=== PATIENT | female | born 1965 | race Two or more races ===

== ENCOUNTER 2024-10-21 12:39 | Emergency (ER) | payer OTHER ==
[~2024-10-21] VITALS: Ht 170.2 cm; Wt 81.6 kg
[2024-10-21 14:26] VITALS: BP 156/94; O2SAT 100
[2024-10-21] MEDS ORDERED: levoFLOXacin IN DEXTROSE 5 % 500MG/100ML PIGGYBAG IV STA (15:29)
[2024-10-21] MEDS ORDERED: KETOROLAC TROMETHAMINE 60 MG VIAL IM STA (15:31)
[2024-10-21] MEDS ORDERED: levoFLOXacin IN DEXTROSE 5 % 500MG/100ML PIGGYBAG IV ONE (15:49)
[2024-10-21] MEDS ORDERED: KETOROLAC TROMETHAMINE 60 MG VIAL IM ONE (15:49)
[2024-10-21] MEDS ORDERED: 0.9 % SODIUM CHLORIDE 1,000 ML IV STA (15:56)
[2024-10-21 16:22] LABS: HEMATOCRIT 36.5 % (36.0-45.00); MEAN CELL VOLUME 81.1 fL (80.00-100.00); MEAN CORPUSCULAR HEMOGLOBIN 26.6 pg (27.00-32.0); MEAN CORPUSCULAR HGB CONC 32.8 g/dl (32.0-36.0); PLATELET COUNT 158 K/uL (150-450); RED CELL DISTRIBUTION WIDTH 16.2 % (11.5-14.5)
[2024-10-21 16:42] LABS: PH,URINE 5.5 (5.0-8.0); URINE APPEARANCE Cloudy; URINE BILIRRUBIN Small (NEGATIVE); URINE BLOOD Moderate; URINE COLOR Dark Yellow; URINE GLUCOSE Negative (NEGATIVE); URINE KETONE 15 (NEGATIVE); URINE LEUKOCYTE Moderate; URINE NITRATE Negative
[2024-10-21 16:43] LABS: URINE BACTERIA 3020.6 uL (0.0-1933); URINE CAST 1.76 uL (0.0-1.40); URINE EPITHELIAL CELLS 93.4 uL (0.0-38.8); URINE RBC 32.8 uL (0.0-20.8); URINE WBC 674.9 uL (0.0-23.2)
[2024-10-21 16:49] LABS: ALBUMIN 3.7 gm/dL (3.4-5.0); BILIRUBIN TOTAL 0.68 mg/dL (0.3-1.2); BILIRUBIN,CONJUGATED 0.24 mg/dL (0.0-0.2); BILIRUBIN,UNCONJUGATED 0.44 mg/dL (0.0-0.6); CALCIUM 10.8 mg/dL (8.5-10.1); CREATININE SERUM 1.15 mg/dL (0.55-1.02); GFR 47.97; POTASSIUM 4.11 mEq/L (3.5-5.1); TOTAL PROTEIN 7.9 gm/dL (6.4-8.2)
[2024-10-21 16:59] LABS: URINE PROTEIN 100 (NEGATIVE)
[2024-10-21] MEDS ORDERED: PEPCID AC20 MG PO (17:05)
[2024-10-21] MEDS ORDERED: ZOFRAN8 MG PO (17:05)
[2024-10-21] MEDS ORDERED: BACTRIM DS TAB1 EACH PO (17:05)
== END 2024-10-21 17:57 | disposition home or self-care (01) ==
LOC: ER 12:41
PROVIDERS: General Practice
DX: N39.0 Urinary tract infection, site not specified (principal)

== ENCOUNTER 2024-10-24 21:40 | Inpatient (IN) | payer OTHER ==
[~2024-10-24] VITALS: Ht 162.6 cm; Wt 86.2 kg
[~2024-10-24 21:40] MED LIST: BACTRIM DS TAB1 EACH PO; PEPCID AC20 MG PO; ZOFRAN8 MG PO
[2024-10-24] MEDS ORDERED: ATORVASTATIN CA10 MG PO (21:50)
[2024-10-24] MEDS ORDERED: LOSARTAN-HCTZ1 EAC2 PO (21:50)
--- NOTE | 2024-10-24 21:50 | NUR ---
SE RECIBE PTE ALERTA Y ORIENTADA X3 CUAL VERBALIZA LLEVA VARIOS MESES CON VOMITOS CONSTANTES Y EN OCASIONES PRESENTA STEPHON. SE ASAD S/V Y SE UBICA.
[2024-10-25] MEDS ORDERED: 0.9 % SODIUM CHLORIDE 1,000 ML IV STA (03:47)
[2024-10-25] MEDS ORDERED: FAMOtidine 10 MG/ML (4ML VIAL) IV PUSH STA (03:48)
[2024-10-25] MEDS ORDERED: METOCLOPRAMIDE HCL 5 MG/ML VIAL IM STA (03:56)
[2024-10-25] MEDS ORDERED: METOCLOPRAMIDE HCL 5 MG/ML VIAL ONE (03:59)
[2024-10-25] MEDS ORDERED: FAMOTIDINE/PF 20 MG/2 ML VIAL ONE (03:59)
[2024-10-25] MEDS ORDERED: HYOSCYAMINE SULFATE 0.125 MG TAB.SUBL ONE (03:59)
[2024-10-25] MEDS ORDERED: HYOSCYAMINE SULFATE 0.125 MG TAB.SUBL SL ONE (04:00)
[2024-10-25 05:32] LABS: HEMATOCRIT 29.6 % (36.0-45.00); MEAN CELL VOLUME 82.5 fL (80.00-100.00); MEAN CORPUSCULAR HGB CONC 32.2 g/dl (32.0-36.0); RED BLOOD COUNT 3.59 M/uL (4.00-6.00); RED CELL DISTRIBUTION WIDTH 16.2 % (11.5-14.5)
[2024-10-25 05:34] LABS: HEMOGLOBIN 9.5 g/dL (12.0-15.00); MEAN CORPUSCULAR HEMOGLOBIN 26.4 pg (27.00-32.0); PLATELET COUNT 107 K/uL (150-450)
[2024-10-25 05:48] LABS: PH,URINE 5.5 (5.0-8.0); URINE APPEARANCE Cloudy; URINE BILIRRUBIN Negative (NEGATIVE); URINE BLOOD Negative; URINE COLOR Dark Yellow; URINE GLUCOSE Negative (NEGATIVE); URINE KETONE 15 (NEGATIVE); URINE LEUKOCYTE Small; URINE NITRATE Negative; URINE PROTEIN Trace (NEGATIVE)
[2024-10-25 05:52] LABS: ALBUMIN 3.1 gm/dL (3.4-5.0); BILIRUBIN TOTAL 0.72 mg/dL (0.3-1.2); CALCIUM 10.1 mg/dL (8.5-10.1); CREATININE SERUM 0.9 mg/dL (0.55-1.02); GFR 63.65; GLOBULINA 3.1 G/DL (2.4-3.5); POTASSIUM 3.76 mEq/L (3.5-5.1); TOTAL PROTEIN 6.2 gm/dL (6.4-8.2); URINE BACTERIA 2227.6 uL (0.0-1933); URINE EPITHELIAL CELLS 70.7 uL (0.0-38.8); URINE WBC 71.3 uL (0.0-23.2)
[2024-10-25 05:53] LABS: INR 1.42; PARTIAL THROMBOPLASTIN TIME 22.1 SECONDS (22.0-34.0); URINE CAST 0.73 uL (0.0-1.40)
[2024-10-25 05:59] LABS: PROTHROMBIN TIME 15.1 SECONDS (9.0-11.5)
[2024-10-25] MEDS ORDERED: PANTOPRAZOLE SODIUM 80 MG in 0.9 % SODIUM CHLORIDE 100 ML IV SCH (07:30)
--- NOTE | 2024-10-25 07:43 | NUR ---
SE RECIBE PACIENTE ALERTA Y ORIENTADA X3. LA MISMA EN DESCANSO EN CAMA. CANALIZADA EN BRAZO YIMI # 18 Y MANO IZQUIERDA # 22 PATENTE Y SHAHID DE DOLOR BAJANDO CON UN 0.9NSS @ 120 ML/HR Y DRIP DE PROTONIX 80MG/100 ML @ 10 ML/HR. LA MISMA CONSULTA CON DX. DE UPPER GI BLEED. POR ORDEN DEL DR. HOFFMANN SE CONECTA A MONITOR CARDIACO Y OXIMETRIA DE PULSO. SE COLOCA CANULA NASAL A 2 L/MIN. Y SE MIDEN S/V Y SE DOCUMENTAN EN SISTEMA. SE ORIENTA SOBRE EL TX MEDICO QUE ESTA RECIBIENDO Y ESTA REFIERE ENTENDER
[2024-10-25] MEDS ORDERED: ONDANSETRON HCL 2 MG/ML VIAL IV ONE (10:45)
[2024-10-25] MEDS ORDERED: ONDANSETRON HCL 2 MG/ML VIAL ONE ×3 (10:46→18:58)
[2024-10-25] MEDS ORDERED: MORPHINE SULFATE 2 MG/ML CARTRIDGE IV PRN (18:15)
[2024-10-25] MEDS ORDERED: 0.9 % SODIUM CHLORIDE 1,000 ML IV SCH (18:15)
[2024-10-25] MEDS ORDERED: ACETAMINOPHEN 325 MG TABLET PO PRN (18:30)
[2024-10-25] MEDS ORDERED: ONDANSETRON HCL 4 MG in 0.9 % SODIUM CHLORIDE 50 ML IV PRN (18:30)
[2024-10-25 21:57] VITALS: BP 155/80; O2SAT 97
[2024-10-26 01:59] VITALS: BP 135/76; O2SAT 97
[2024-10-26 07:38] LABS: HEMATOCRIT 25.5 % (36.0-45.00); MEAN CORPUSCULAR HGB CONC 32.8 g/dl (32.0-36.0); RED BLOOD COUNT 3.11 M/uL (4.00-6.00); RED CELL DISTRIBUTION WIDTH 16.1 % (11.5-14.5)
[2024-10-26 07:50] LABS: HEMOGLOBIN 8.4 g/dL (12.0-15.00); PLATELET COUNT 85 K/uL (150-450)
[2024-10-26 08:21] LABS: ALBUMIN 2.6 gm/dL (3.4-5.0); BILIRUBIN TOTAL 0.72 mg/dL (0.3-1.2); BILIRUBIN,CONJUGATED 0.25 mg/dL (0.0-0.2); BILIRUBIN,UNCONJUGATED 0.47 mg/dL (0.0-0.6); CALCIUM 8.8 mg/dL (8.5-10.1); CREATININE SERUM 0.88 mg/dL (0.55-1.02); GFR 65.32; POTASSIUM 3.64 mEq/L (3.5-5.1); TOTAL PROTEIN 5.4 gm/dL (6.4-8.2)
[2024-10-26] MEDS ORDERED: LOSARTAN POTASSIUM 100 MG TABLET PO SCH (09:00)
[2024-10-26 10:19] VITALS: BP 128/72; O2SAT 98
[2024-10-26] MEDS ORDERED: CEFTRIAXONE SODIUM 2,000 MG in 0.9 % SODIUM CHLORIDE 100 ML IV SCH (11:38)
[2024-10-26] MEDS ORDERED: ENALAPRILAT DIHYDRATE 1.25 MG/ML VIAL IV SCH (14:08)
[2024-10-26] MEDS ORDERED: MORPHINE SULFATE 2 MG/ML SYRINGE IV PRN (14:15)
[2024-10-26 18:58] VITALS: BP 153/83; O2SAT 96
[2024-10-26] MEDS ORDERED: ONDANSETRON HCL 2 MG/ML VIAL IV PRN (23:15)
[2024-10-27 01:45] VITALS: BP 159/90; O2SAT 94
[2024-10-27] MEDS ORDERED: METOCLOPRAMIDE HCL 5 MG/ML VIAL IV PRN (02:45)
[2024-10-27 07:02] LABS: HEMATOCRIT 32.1 % (36.0-45.00); HEMOGLOBIN 10.5 g/dL (12.0-15.00); MEAN CELL VOLUME 81.3 fL (80.00-100.00); MEAN CORPUSCULAR HEMOGLOBIN 26.5 pg (27.00-32.0); MEAN CORPUSCULAR HGB CONC 32.6 g/dl (32.0-36.0); RED BLOOD COUNT 3.95 M/uL (4.00-6.00); RED CELL DISTRIBUTION WIDTH 15.5 % (11.5-14.5)
[2024-10-27 07:08] LABS: PLATELET COUNT 82 K/uL (150-450)
[2024-10-27 08:40] VITALS: BP 165/90
[2024-10-27] MEDS ORDERED: KETOROLAC TROMETHAMINE 30 MG VIAL ONE (09:08)
[2024-10-27] MEDS ORDERED: MIDAZOLAM HCL 2 MG/2 ML VIAL IV PUSH ONE (20:15)
[2024-10-27] MEDS ORDERED: FentaNYL CITRATE/PF 50MCG/ML 2ML VIAL IJ ONE (20:15)
[2024-10-27 22:00] VITALS: BP 188/101
[2024-10-28 01:48] VITALS: BP 158/85; O2SAT 97
[2024-10-28 09:07] VITALS: BP 180/81
[2024-10-28 16:48] VITALS: BP 172/83
[2024-10-28 22:25] LABS: FERRITIN 83.7 NG/ML (8-252); TSH 0.825 uIU/mL (0.358-3.74)
[2024-10-29 01:55] VITALS: BP 178/89; O2SAT 95
[2024-10-29] MEDS ORDERED: PANTOPRAZOLE SODIUM 80 MG in 0.9 % SODIUM CHLORIDE 100 ML IV SCH (06:00)
[2024-10-29] MEDS ORDERED: MEPERIDINE HCL 25 MG/ML AMPUL IV PRN (08:15)
[2024-10-29] MEDS ORDERED: CEFTRIAXONE SODIUM 2,000 MG VIAL ONE (08:28)
[2024-10-29 10:01] LABS: FOLIC ACID 9.96 ng/ml (4.78-20)
[2024-10-29 10:09] VITALS: BP 178/107; O2SAT 96
[2024-10-29 17:52] VITALS: BP 184/101
[2024-10-29 22:06] LABS: HEMATOCRIT 33.8 % (36.0-45.00); HEMOGLOBIN 10.7 g/dL (12.0-15.00); MEAN CORPUSCULAR HEMOGLOBIN 25.9 pg (27.00-32.0); MEAN CORPUSCULAR HGB CONC 31.6 g/dl (32.0-36.0); RED BLOOD COUNT 4.12 M/uL (4.00-6.00); RED CELL DISTRIBUTION WIDTH 16.4 % (11.5-14.5)
[2024-10-29 22:07] LABS: PLATELET COUNT 96 K/uL (150-450)
[2024-10-29 22:19] LABS: ALBUMIN 2.6 gm/dL (3.4-5.0); BILIRUBIN TOTAL 0.77 mg/dL (0.3-1.2); CALCIUM 9.6 mg/dL (8.5-10.1); CREATININE SERUM 0.78 mg/dL (0.55-1.02); GFR 75.08; GLOBULINA 3.2 G/DL (2.4-3.5); POTASSIUM 3.24 mEq/L (3.5-5.1); TOTAL PROTEIN 5.8 gm/dL (6.4-8.2)
[2024-10-30 04:03] VITALS: BP 182/81
[2024-10-30] MEDS ORDERED: SODIUM CL 0.9% 100 ML IV.SOLN IV ONE (04:49)
[2024-10-30] MEDS ORDERED: CEFTRIAXONE SODIUM 2,000 MG VIAL ONE (08:06)
[2024-10-30] MEDS ORDERED: MIDAZOLAM HCL 2 MG/2 ML VIAL IV ONE (09:30)
[2024-10-30] MEDS ORDERED: fentaNYL CITRATE 50 MCG/ML AMPUL IV PUSH ONE (09:30)
[2024-10-30] MEDS ORDERED: DIPHENHYDRAMINE HCL 50 MG/ML VIAL 1ML IV NR (09:30)
[2024-10-30] MEDS ORDERED: SUCRALFATE 1 G TABLET PO SCH (10:17)
[2024-10-30 14:42] LABS: HEMATOCRIT 34.3 % (36.0-45.00); HEMOGLOBIN 10.9 g/dL (12.0-15.00); MEAN CELL VOLUME 81.8 fL (80.00-100.00); MEAN CORPUSCULAR HEMOGLOBIN 26.1 pg (27.00-32.0); RED BLOOD COUNT 4.19 M/uL (4.00-6.00); RED CELL DISTRIBUTION WIDTH 16.6 % (11.5-14.5)
[2024-10-30 14:46] LABS: PLATELET COUNT 99 K/uL (150-450)
[2024-10-30 18:27] VITALS: BP 157/99
[2024-10-30] MEDS ORDERED: MORPHINE SULFATE 2 MG/ML CARTRIDGE IV PRN (19:15)
[2024-10-31 02:54] VITALS: BP 144/95; O2SAT 96
[2024-10-31 09:42] VITALS: BP 160/100; O2SAT 94
[2024-10-31 12:07] LABS: HEMATOCRIT 35.7 % (36.0-45.00); HEMOGLOBIN 11.4 g/dL (12.0-15.00); MEAN CELL VOLUME 82.6 fL (80.00-100.00); MEAN CORPUSCULAR HEMOGLOBIN 26.2 pg (27.00-32.0); MEAN CORPUSCULAR HGB CONC 31.8 g/dl (32.0-36.0); RED BLOOD COUNT 4.33 M/uL (4.00-6.00); RED CELL DISTRIBUTION WIDTH 16.4 % (11.5-14.5)
[2024-10-31 12:09] LABS: PLATELET COUNT 97 K/uL (150-450)
[2024-10-31 17:41] VITALS: BP 140/90; O2SAT 94
[2024-11-01 02:09] VITALS: BP 157/81; O2SAT 92
[2024-11-01 09:47] VITALS: BP 136/80; O2SAT 97
[2024-11-01 11:28] LABS: HEMATOCRIT 33.3 % (36.0-45.00); HEMOGLOBIN 10.7 g/dL (12.0-15.00); MEAN CELL VOLUME 82.3 fL (80.00-100.00); MEAN CORPUSCULAR HEMOGLOBIN 26.3 pg (27.00-32.0); RED BLOOD COUNT 4.05 M/uL (4.00-6.00); RED CELL DISTRIBUTION WIDTH 16.9 % (11.5-14.5)
[2024-11-01 11:39] LABS: CALCIUM 9.8 mg/dL (8.5-10.1); CREATININE SERUM 0.86 mg/dL (0.55-1.02); GFR 67.08; POTASSIUM 3.3 mEq/L (3.5-5.1)
[2024-11-01 11:44] LABS: PLATELET COUNT 99 K/uL (150-450)
[2024-11-01] MEDS ORDERED: POTASSIUM BICARBONATE/CIT AC 25 MEQ TABLET.EFF PO SCH (17:00)
[2024-11-01 18:16] VITALS: BP 183/96
[2024-11-02 02:17] VITALS: BP 182/90
[2024-11-02] MEDS ORDERED: AMLODIPINE BESYLATE 10 MG TABLET PO SCH (09:00)
[2024-11-02 09:01] LABS: CALCIUM 9.6 mg/dL (8.5-10.1); CREATININE SERUM 0.8 mg/dL (0.55-1.02); GFR 72.92; POTASSIUM 3.57 mEq/L (3.5-5.1)
[2024-11-02] MEDS ORDERED: ENOXAPARIN SODIUM 40 MG/0.4 ML SYRINGE SUBCUTANEO SCH (09:09)
[2024-11-02 09:54] VITALS: BP 131/86; O2SAT 98
[2024-11-02 18:44] VITALS: BP 160/100
[2024-11-03 02:11] VITALS: BP 158/110; O2SAT 96
[2024-11-03] MEDS ORDERED: PANTOPRAZOLE SODIUM 80 MG in 0.9 % SODIUM CHLORIDE 100 ML IV SCH (09:00)
[2024-11-03 09:30] VITALS: BP 152/90; O2SAT 98
[2024-11-03 12:13] LABS: HEMATOCRIT 33.4 % (36.0-45.00); MEAN CELL VOLUME 82.2 fL (80.00-100.00); MEAN CORPUSCULAR HGB CONC 31.6 g/dl (32.0-36.0); RED BLOOD COUNT 4.07 M/uL (4.00-6.00); RED CELL DISTRIBUTION WIDTH 16.4 % (11.5-14.5)
[2024-11-03 12:14] LABS: PLATELET COUNT 115 K/uL (150-450)
[2024-11-03 12:15] LABS: HEMOGLOBIN 10.6 g/dL (12.0-15.00)
[2024-11-03 18:20] VITALS: BP 170/91; O2SAT 96
[2024-11-04 00:53] VITALS: BP 147/88; O2SAT 98
[2024-11-04 08:39] VITALS: BP 148/99
[2024-11-04] MEDS ORDERED: ENALAPRILAT DIHYDRATE 1.25 MG/ML VIAL IV PRN (16:45)
[2024-11-04 18:09] VITALS: BP 186/90
[2024-11-05 03:06] VITALS: BP 166/89
[2024-11-05 08:38] VITALS: BP 161/92
[2024-11-05 11:37] LABS: HEMATOCRIT 28.9 % (36.0-45.00); HEMOGLOBIN 9.5 g/dL (12.0-15.00); MEAN CELL VOLUME 80.3 fL (80.00-100.00); MEAN CORPUSCULAR HEMOGLOBIN 26.2 pg (27.00-32.0); MEAN CORPUSCULAR HGB CONC 32.7 g/dl (32.0-36.0); RED CELL DISTRIBUTION WIDTH 16.6 % (11.5-14.5)
[2024-11-05 11:38] LABS: PLATELET COUNT 124 K/uL (150-450)
[2024-11-05] MEDS ORDERED: BUPIVACAINE HCL/MPF 0.5% 30ML VIAL ONE (17:12)
[2024-11-05] MEDS ORDERED: LIDOCAINE HCL 1%/EPINEPHRINE 20ML VIAL IJ ONE (17:12)
[2024-11-05] MEDS ORDERED: CEFAZOLIN SODIUM 1,000 MG VIAL ONE (17:33)
[2024-11-05] MEDS ORDERED: HEPARIN SODIUM,PORCINE 500 UNITS/5 ML VIAL IV ONE (18:45)
[2024-11-05] MEDS ORDERED: MORPHINE SULFATE 4 MG/ML CARTRIDGE IV PRN (19:00)
[2024-11-05] MEDS ORDERED: MORPHINE SULFATE 4 MG/ML VIAL IV ONE (19:25)
[2024-11-06 02:36] VITALS: BP 137/79
[2024-11-06 08:40] VITALS: BP 158/94
[2024-11-08 02:30] VITALS: BP 138/76; O2SAT 98
== END 2024-11-06 15:50 | disposition home or self-care (01) | DRG 424 ==
LOC: ER 21:40 → MEDJ 10-25 19:11
PROVIDERS: General Practice; Internal Medicine Hematology & Oncology; Student in an Organized Health Care Education/Training Program; ADMIT Internal Medicine; ATTEND Internal Medicine
PROC: BW21ZZZ Computerized Tomography (CT Scan) of Abdomen and Pelvis (ICD-10-PCS; 2024-10-25)
PROC: B24BZZZ Ultrasonography of Heart with Aorta (ICD-10-PCS; 2024-10-25)
PROC: B54MZZZ Ultrasonography of Right Upper Extremity Veins (ICD-10-PCS; 2024-10-25)
PROC: 02HV33Z Insertion of Infusion Device into Superior Vena Cava, Percutaneous Approach (ICD-10-PCS; 2024-10-26)
PROC: 30233N1 Transfusion of Nonautologous Red Blood Cells into Peripheral Vein, Percutaneous Approach (ICD-10-PCS; 2024-10-26)
PROC: 0FB03ZX Excision of Liver, Percutaneous Approach, Diagnostic (ICD-10-PCS; 2024-10-27)
PROC: BW24YZZ Computerized Tomography (CT Scan) of Chest and Abdomen using Other Contrast (ICD-10-PCS; 2024-10-28)
PROC: BW21YZZ Computerized Tomography (CT Scan) of Abdomen and Pelvis using Other Contrast (ICD-10-PCS; 2024-10-28)
PROC: 0DB68ZX Excision of Stomach, Via Natural or Artificial Opening Endoscopic, Diagnostic (ICD-10-PCS; 2024-10-30)
PROC: 05HM33Z Insertion of Infusion Device into Right Internal Jugular Vein, Percutaneous Approach (ICD-10-PCS; 2024-11-05)
PROC: B513YZA Fluoroscopy of Right Jugular Veins using Other Contrast, Guidance (ICD-10-PCS; 2024-11-05)
PROC: 0JH60WZ Insertion of Totally Implantable Vascular Access Device into Chest Subcutaneous Tissue and Fascia, Open Approach (ICD-10-PCS; principal; 2024-11-05 17:00)
DX: C25.9 Malignant neoplasm of pancreas, unspecified (principal); C78.02 Secondary malignant neoplasm of left lung; K92.2 Gastrointestinal hemorrhage, unspecified; C78.7 Secondary malignant neoplasm of liver and intrahepatic bile duct; K76.6 Portal hypertension; N39.0 Urinary tract infection, site not specified; D62 Acute posthemorrhagic anemia; C78.89 Secondary malignant neoplasm of other digestive organs; E87.1 Hypo-osmolality and hyponatremia; K44.9 Diaphragmatic hernia without obstruction or gangrene; D63.0 Anemia in neoplastic disease; E87.6 Hypokalemia; I10 Essential (primary) hypertension; E78.5 Hyperlipidemia, unspecified; D69.6 Thrombocytopenia, unspecified; K31.89 Other diseases of stomach and duodenum

== ENCOUNTER 2025-01-06 22:03 | Inpatient (IN) | payer OTHER ==
[~2025-01-06] VITALS: Ht 162.6 cm; Wt 81.6 kg
[~2025-01-06 22:03] MED LIST changes: +ATORVASTATIN CA10 MG PO; +LOSARTAN-HCTZ1 EAC2 PO
[2025-01-07 00:27] LABS: HEMATOCRIT 26.2 % (36.0-45.00); MEAN CELL VOLUME 82.5 fL (80.00-100.00); MEAN CORPUSCULAR HGB CONC 32.1 g/dl (32.0-36.0); RED BLOOD COUNT 3.18 M/uL (4.00-6.00)
[2025-01-07 00:28] LABS: MEAN CORPUSCULAR HEMOGLOBIN 26.4 pg (27.00-32.0)
[2025-01-07 00:34] LABS: HEMOGLOBIN 8.4 g/dL (12.0-15.00); PLATELET COUNT 89 K/uL (150-450)
[2025-01-07 00:56] LABS: INR 1.18; PARTIAL THROMBOPLASTIN TIME 23.8 SECONDS (22.0-34.0); PROTHROMBIN TIME 12.7 SECONDS (9.0-11.5)
[2025-01-07 00:59] LABS: ALBUMIN 2.8 gm/dL (3.4-5.0); BILIRUBIN TOTAL 0.52 mg/dL (0.3-1.2); CALCIUM 10.2 mg/dL (8.5-10.1); GFR 44.39; POTASSIUM 3.93 mEq/L (3.5-5.1); TOTAL PROTEIN 6.8 gm/dL (6.4-8.2)
[2025-01-07 01:01] LABS: CREATININE SERUM 1.23 mg/dL (0.55-1.02)
[2025-01-07] MEDS ORDERED: 0.9 % SODIUM CHLORIDE 1,000 ML IV SCH ×2 (09:00→11:30)
[2025-01-07] MEDS ORDERED: LOSARTAN/HYDROCHLOROTHIAZIDE 1 TAB TABLET PO SCH (11:16)
[2025-01-07] MEDS ORDERED: ENOXAPARIN SODIUM 40 MG/0.4 ML SYRINGE SUBCUTANEO SCH (11:16)
[2025-01-07] MEDS ORDERED: ATORVASTATIN CALCIUM 10 MG TABLET PO SCH (11:18)
[2025-01-07] MEDS ORDERED: MORPHINE SULFATE 4 MG/ML CARTRIDGE IV PRN (11:30)
[2025-01-07] MEDS ORDERED: ENOXAPARIN SODIUM 40 MG/0.4 ML SYRINGE SUBCUTANEO ONE (12:24)
[2025-01-07 15:32] VITALS: BP 120/75; O2SAT 100
[2025-01-07 18:38] VITALS: BP 180/80
[2025-01-07] MEDS ORDERED: METOCLOPRAMIDE HCL 5 MG/ML VIAL IV SCH (21:39)
[2025-01-07] MEDS ORDERED: PANTOPRAZOLE SODIUM 40 MG/VIAL VIAL IV SCH (21:40)
[2025-01-07] MEDS ORDERED: FAMOTIDINE/PF 20 MG/2 ML VIAL IV SCH (21:40)
[2025-01-07 22:42] VITALS: BP 131/66
[2025-01-08 04:53] VITALS: BP 93/62
[2025-01-08] MEDS ORDERED: FILGRASTIM-AAFI 300 MCG/0.5 ML SYRINGE SUBCUTANEO SCH (09:00)
[2025-01-08] MEDS ORDERED: ENOXAPARIN SODIUM 80 MG/0.8 ML SYRINGE SUBCUTANEO SCH (09:00)
[2025-01-08 09:36] VITALS: BP 106/70; O2SAT 97
[2025-01-08 13:24] LABS: MEAN CELL VOLUME 84.5 fL (80.00-100.00); MEAN CORPUSCULAR HEMOGLOBIN 27.2 pg (27.00-32.0); MEAN CORPUSCULAR HGB CONC 32.2 g/dl (32.0-36.0); RED BLOOD COUNT 3.67 M/uL (4.00-6.00); RED CELL DISTRIBUTION WIDTH 21.3 % (11.5-14.5)
[2025-01-08 13:32] LABS: PLATELET COUNT 102 K/uL (150-450)
[2025-01-08 18:43] VITALS: BP 144/84; O2SAT 97
[2025-01-08] MEDS ORDERED: BUPIVACAINE HCL/MPF 0.5% 30ML VIAL ONE (19:02)
[2025-01-08] MEDS ORDERED: IOVERSOL 320 MG/ML - 50 ML VIAL IV ONE (19:02)
[2025-01-08] MEDS ORDERED: LIDOCAINE HCL 1%/EPINEPHRINE 20ML VIAL IJ ONE (19:03)
[2025-01-08 21:56] VITALS: BP 114/66; O2SAT 100
[2025-01-09 01:28] VITALS: BP 118/76
[2025-01-09 06:36] LABS: HEMATOCRIT 28.7 % (36.0-45.00); HEMOGLOBIN 9.5 g/dL (12.0-15.00); MEAN CELL VOLUME 84.3 fL (80.00-100.00); MEAN CORPUSCULAR HEMOGLOBIN 27.9 pg (27.00-32.0); MEAN CORPUSCULAR HGB CONC 33.1 g/dl (32.0-36.0); RED CELL DISTRIBUTION WIDTH 21.2 % (11.5-14.5)
[2025-01-09 06:59] LABS: ALBUMIN 2.5 gm/dL (3.4-5.0); BILIRUBIN TOTAL 0.37 mg/dL (0.3-1.2); CALCIUM 9.2 mg/dL (8.5-10.1); CREATININE SERUM 0.89 mg/dL (0.55-1.02); GFR 64.48; GLOBULINA 3.2 G/DL (2.4-3.5); POTASSIUM 3.63 mEq/L (3.5-5.1); TOTAL PROTEIN 5.7 gm/dL (6.4-8.2)
[2025-01-09 07:07] LABS: PLATELET COUNT 83 K/uL (150-450)
[2025-01-09 11:07] VITALS: BP 120/70
[2025-01-09] MEDS ORDERED: METOCLOPRAMIDE HCL 5 MG/ML VIAL IV SCH (17:00)
[2025-01-09 17:23] VITALS: BP 117/77
[2025-01-09] MEDS ORDERED: fentaNYL CITRATE 50 MCG/ML AMPUL IV PUSH ONE (19:00)
[2025-01-09] MEDS ORDERED: MIDAZOLAM HCL 2 MG/2 ML VIAL IV PUSH ONE (19:00)
[2025-01-10 03:07] VITALS: BP 130/74; O2SAT 97
[2025-01-10 07:27] LABS: HEMATOCRIT 27.5 % (36.0-45.00); MEAN CELL VOLUME 84.4 fL (80.00-100.00); MEAN CORPUSCULAR HGB CONC 33.2 g/dl (32.0-36.0); RED BLOOD COUNT 3.26 M/uL (4.00-6.00); RED CELL DISTRIBUTION WIDTH 20.9 % (11.5-14.5)
[2025-01-10 07:42] LABS: HEMOGLOBIN 9.1 g/dL (12.0-15.00); MEAN CORPUSCULAR HEMOGLOBIN 27.9 pg (27.00-32.0)
[2025-01-10 07:43] LABS: PLATELET COUNT 72 K/uL (150-450)
[2025-01-10 08:00] VITALS: BP 119/75
[2025-01-10] MEDS ORDERED: BISMUTH SUBSALICYLATE 524 MG/30 ML BLIST.PACK PO PRN (14:15)
[2025-01-10] MEDS ORDERED: LACTOBACILLUS ACIDOPHILUS 1 CAP CAP PO SCH (17:00)
[2025-01-10 17:03] VITALS: BP 131/76
[2025-01-11 02:19] VITALS: BP 114/72; O2SAT 93
[2025-01-11 07:38] LABS: HEMATOCRIT 27.1 % (36.0-45.00); MEAN CELL VOLUME 83.7 fL (80.00-100.00); MEAN CORPUSCULAR HGB CONC 33.2 g/dl (32.0-36.0); RED BLOOD COUNT 3.24 M/uL (4.00-6.00); RED CELL DISTRIBUTION WIDTH 21.2 % (11.5-14.5)
[2025-01-11 07:55] LABS: MEAN CORPUSCULAR HEMOGLOBIN 27.7 pg (27.00-32.0); PLATELET COUNT 62 K/uL (150-450)
[2025-01-11 08:00] VITALS: BP 114/74; O2SAT 99
[2025-01-11 17:24] VITALS: BP 159/83
[2025-01-12 01:13] VITALS: BP 112/67
[2025-01-12 06:58] LABS: CALCIUM 9.2 mg/dL (8.5-10.1); CREATININE SERUM 0.7 mg/dL (0.55-1.02); GFR 85.07; POTASSIUM 3.16 mEq/L (3.5-5.1)
[2025-01-12 07:13] LABS: MEAN CELL VOLUME 83.8 fL (80.00-100.00); MEAN CORPUSCULAR HGB CONC 33.5 g/dl (32.0-36.0); RED BLOOD COUNT 3.22 M/uL (4.00-6.00)
[2025-01-12 07:31] LABS: MEAN CORPUSCULAR HEMOGLOBIN 27.9 pg (27.00-32.0); PLATELET COUNT 56 K/uL (150-450)
[2025-01-12 09:58] VITALS: BP 133/81; O2SAT 98
[2025-01-12] MEDS ORDERED: MAGNESIUM SULFATE IN WATER 50 ML IV NR (12:00)
[2025-01-12] MEDS ORDERED: POTASSIUM CHLORIDE 10 MEQ CAPSULE PO NR (12:00)
[2025-01-12] MEDS ORDERED: POTASSIUM CHLORIDE IN WATER 100 ML IV SCH (13:00)
[2025-01-12 16:45] VITALS: BP 121/70
[2025-01-13 02:55] VITALS: BP 117/77; O2SAT 97
[2025-01-13 08:43] VITALS: BP 151/92; O2SAT 95
[2025-01-13 11:37] LABS: HEMATOCRIT 31.1 % (36.0-45.00); MEAN CELL VOLUME 84.3 fL (80.00-100.00); MEAN CORPUSCULAR HGB CONC 32.3 g/dl (32.0-36.0); RED BLOOD COUNT 3.69 M/uL (4.00-6.00); RED CELL DISTRIBUTION WIDTH 21.1 % (11.5-14.5)
[2025-01-13 11:44] LABS: MEAN CORPUSCULAR HEMOGLOBIN 27.1 pg (27.00-32.0); PLATELET COUNT 70 K/uL (150-450)
[2025-01-13 12:21] LABS: CALCIUM 9.5 mg/dL (8.5-10.1); CREATININE SERUM 0.75 mg/dL (0.55-1.02); GFR 78.56; MAGNESIUM 1.8 mg/dL (1.8-2.4); POTASSIUM 3.85 mEq/L (3.5-5.1)
[2025-01-13] MEDS ORDERED: ONDANSETRON HCL 2 MG/ML VIAL IV PRN (14:30)
[2025-01-13 17:19] VITALS: BP 131/85; O2SAT 97
[2025-01-13 22:18] VITALS: BP 138/82; O2SAT 96
[2025-01-14 02:29] VITALS: BP 144/85; O2SAT 97
[2025-01-14 08:12] VITALS: BP 140/90; O2SAT 95
[2025-01-14 08:37] LABS: HEMATOCRIT 30.2 % (36.0-45.00); MEAN CELL VOLUME 85.4 fL (80.00-100.00); MEAN CORPUSCULAR HGB CONC 31.9 g/dl (32.0-36.0); RED BLOOD COUNT 3.54 M/uL (4.00-6.00); RED CELL DISTRIBUTION WIDTH 21.3 % (11.5-14.5)
[2025-01-14 09:05] LABS: CALCIUM 9.8 mg/dL (8.5-10.1); CREATININE SERUM 0.69 mg/dL (0.55-1.02); GFR 86.49; POTASSIUM 4.12 mEq/L (3.5-5.1)
[2025-01-14 09:12] LABS: MEAN CORPUSCULAR HEMOGLOBIN 27.1 pg (27.00-32.0)
[2025-01-14 09:46] LABS: HEMOGLOBIN 9.6 g/dL (12.0-15.00)
[2025-01-14 09:50] LABS: PLATELET COUNT 71 K/uL (150-450)
== END 2025-01-14 15:24 | disposition home or self-care (01) | DRG 300 ==
LOC: ER 22:03 → MEDJ 01-07 16:17 → SEC-K 01-07 16:17 → MEDJ 01-07 17:56
PROVIDERS: Emergency Medicine; General Practice; Internal Medicine Hematology & Oncology; Radiology Vascular & Interventional Radiology; ADMIT Internal Medicine; ATTEND Internal Medicine
PROC: B54CZZZ Ultrasonography of Left Lower Extremity Veins (ICD-10-PCS; 2025-01-06)
PROC: B44GZZZ Ultrasonography of Left Lower Extremity Arteries (ICD-10-PCS; 2025-01-06)
PROC: 30233N1 Transfusion of Nonautologous Red Blood Cells into Peripheral Vein, Percutaneous Approach (ICD-10-PCS; 2025-01-08)
PROC: 06H03DZ Insertion of Intraluminal Device into Inferior Vena Cava, Percutaneous Approach (ICD-10-PCS; principal; 2025-01-08 18:00)
PROC: 0FB03ZX Excision of Liver, Percutaneous Approach, Diagnostic (ICD-10-PCS; 2025-01-09)
PROC: 30233R1 Transfusion of Nonautologous Platelets into Peripheral Vein, Percutaneous Approach (ICD-10-PCS; 2025-01-13)
DX: I82.422 Acute embolism and thrombosis of left iliac vein (principal); C25.9 Malignant neoplasm of pancreas, unspecified; C78.7 Secondary malignant neoplasm of liver and intrahepatic bile duct; I82.412 Acute embolism and thrombosis of left femoral vein; I82.432 Acute embolism and thrombosis of left popliteal vein; I82.442 Acute embolism and thrombosis of left tibial vein; D63.0 Anemia in neoplastic disease; I10 Essential (primary) hypertension; E78.5 Hyperlipidemia, unspecified; D70.9 Neutropenia, unspecified; D69.6 Thrombocytopenia, unspecified; E87.6 Hypokalemia

== ENCOUNTER 2025-03-03 11:04 | Inpatient (IN) | payer OTHER ==
[~2025-03-03] VITALS: Ht 160 cm; Wt 616.9 kg
[2025-03-03] MEDS ORDERED: ELIQUIS2.5 MG (11:12)
[2025-03-03] MEDS ORDERED: PIPERACILLIN/TAZOBACTAM SODIUM 3.375 GM VIAL IV ONE ×2 (11:30→11:42)
[2025-03-03] MEDS ORDERED: 0.9 % SODIUM CHLORIDE 1,000 ML IV ONE (11:30)
[2025-03-03] MEDS ORDERED: FAMOtidine 10 MG/ML (4ML VIAL) IV ONE (11:30)
[2025-03-03] MEDS ORDERED: ACETAMINOPHEN 500 MG GEL..CAP PO ONE (11:42)
[2025-03-03] MEDS ORDERED: FAMOTIDINE/PF 20 MG/2 ML VIAL ONE (11:43)
[2025-03-03 13:11] LABS: ALBUMIN 2.5 gm/dL (3.4-5.0); BILIRUBIN TOTAL 0.46 mg/dL (0.3-1.2); CALCIUM 9.2 mg/dL (8.5-10.1); CREATININE SERUM 0.79 mg/dL (0.55-1.02); GFR 73.99; GLOBULINA 4.2 G/DL (2.4-3.5); TOTAL PROTEIN 6.7 gm/dL (6.4-8.2)
[2025-03-03 13:20] LABS: POTASSIUM 2.47 mEq/L (3.5-5.1)
[2025-03-03 13:24] LABS: RED BLOOD COUNT 2.33 M/uL (3.93-5.22)
[2025-03-03 13:25] LABS: LYMPH % 19.9 % (19.3-53.1); MEAN CORPUSCULAR HEMOGLOBIN 28.8 pg (25.6-32.2); NEUT % 46.1 % (34.0-71.1); RED CELL DISTRIBUTION WIDTH 20.2 % (11.6-14.4)
[2025-03-03 13:26] LABS: BASO % 0.4 % (0.1-1.2); EOS # 0.01 (0.04-0.54); EOS % 0.4 % (0.7-7.0); LYMPH # 0.51 (1.18-3.74); MONO # 0.64 (0.24-0.82); NEUT # 1.18 (1.56-6.13)
[2025-03-03 13:28] LABS: HEMOGLOBIN 6.7 g/dL (11.2-15.7); PLATELET COUNT 53 K/uL (163-369)
[2025-03-03] MEDS ORDERED: POTASSIUM BICARBONATE/CIT AC 25 MEQ TABLET.EFF PO ONE (13:30)
[2025-03-03] MEDS ORDERED: IPRATROPIUM BROMIDE 0.5 MG/2.5 ML AMPUL.NEB IH SCH (18:54)
[2025-03-03] MEDS ORDERED: GUAIFEN/DEXTROMETHORPHAN/PE 10 ML BLIST.PACK PO SCH (18:55)
[2025-03-03] MEDS ORDERED: PANTOPRAZOLE SODIUM 40 MG/VIAL VIAL IV SCH (18:55)
[2025-03-03] MEDS ORDERED: CEFEPIME HCL 2,000 MG in 0.9 % SODIUM CHLORIDE 100 ML IV SCH (18:58)
[2025-03-03] MEDS ORDERED: 0.9 % SODIUM CHLORIDE 1,000 ML IV SCH (19:00)
[2025-03-03] MEDS ORDERED: ACETAMINOPHEN 500 MG GEL..CAP PO PRN (19:00)
[2025-03-03] MEDS ORDERED: FUROsemide 20 MG/2 ML VIAL IV SCH (19:00)
[2025-03-03] MEDS ORDERED: POTASSIUM CHLORIDE IN 0.9%NACL 1,000 ML IV ONE (19:00)
[2025-03-03] MEDS ORDERED: METHYLPREDNISOLONE SOD SUCC 125 MG VIAL IV ONE (19:15)
[2025-03-03] MEDS ORDERED: GUAIFEN/DEXTROMETHORPHAN/PE 10 ML BLIST.PACK PO ONE (20:26)
[2025-03-03] MEDS ORDERED: METHYLPREDNISOLONE SOD SUCC 125 MG VIAL ONE (20:26)
[2025-03-03] MEDS ORDERED: CEFEPIME HCL 2,000 MG VIAL ONE (20:27)
[2025-03-03 20:35] LABS: INR 1.25; PROTHROMBIN TIME 13.4 SECONDS (9.0-11.5)
[2025-03-03 20:36] LABS: C-REACTIVE PROTEIN 8.4 MG/DL (0.00-0.29); MAGNESIUM 1.6 mg/dL (1.8-2.4); PHOSPHOROUS 2.5 mg/dL (2.5-4.9)
[2025-03-03] MEDS ORDERED: ONDANSETRON HCL 2 MG/ML VIAL IV SCH (20:44)
[2025-03-03] MEDS ORDERED: FAMOTIDINE/PF 20 MG/2 ML VIAL IV SCH (20:44)
[2025-03-03] MEDS ORDERED: POLYETHYLENE GLYCOL 3350 17 GM BLIST.PACK PO PRN (20:45)
[2025-03-03 20:48] LABS: ABG PH 7.467 (7.35-7.45); ABG PO2 93.5 mmHg (80-100); ABG pCO2 35.3 mmHg (35-45); BASE EXCESS 1.6 mmol/l; BICARBONATE 24.9 mmol/l (23-25); SaO2 97.8 %; allen test SATISFACTORY; mode ROOM AIR; o2 21 %; puncture site RADIAL RIGHT
[2025-03-03 22:10] VITALS: BP 110/65; O2SAT 100
[2025-03-03 23:40] LABS: PH,URINE 6.5 (5.0-8.0); URINE APPEARANCE Cloudy; URINE BILIRRUBIN Negative (NEGATIVE); URINE BLOOD Negative; URINE COLOR Yellow; URINE GLUCOSE Negative (NEGATIVE); URINE KETONE 15 (NEGATIVE); URINE LEUKOCYTE Large; URINE NITRATE Negative; URINE PROTEIN 30 (NEGATIVE); URINE UROBILINOGEN 0.2 E.U./dl
[2025-03-03 23:44] LABS: URINE BACTERIA 1887.3 uL (0.0-1933); URINE EPITHELIAL CELLS 12.3 uL (0.0-38.8); URINE RBC 11.7 uL (0.0-20.8); URINE WBC 1885.3 uL (0.0-23.2)
[2025-03-03 23:48] LABS: URINE CAST 1.03 uL (0.0-1.40)
[2025-03-04 05:45] VITALS: BP 109/72; O2SAT 99
[2025-03-04 08:52] VITALS: BP 128/82; O2SAT 95
[2025-03-04 16:00] VITALS: BP 129/83; O2SAT 98
[2025-03-04] MEDS ORDERED: APIXABAN 2.5 MG TABLET PO SCH (17:00)
[2025-03-04] MEDS ORDERED: VANCOMYCIN HCL 1,000 MG VIAL ONE (19:04)
[2025-03-04] MEDS ORDERED: VANCOMYCIN HCL 1,000 MG VIAL IV SCH (21:00)
[2025-03-05 01:30] VITALS: BP 130/72; O2SAT 99
[2025-03-05 08:00] VITALS: BP 107/74; O2SAT 96
[2025-03-05] MEDS ORDERED: VANCOMYCIN HCL 1,000 MG VIAL ONE (08:02)
[2025-03-05 09:56] LABS: BASO % 0.2 % (0.1-1.2); EOS # 0.01 (0.04-0.54); EOS % 0.2 % (0.7-7.0); HEMATOCRIT 34.7 % (34.1-44.9); HEMOGLOBIN 11.8 g/dL (11.2-15.7); LYMPH # 0.66 (1.18-3.74); LYMPH % 13.6 % (19.3-53.1); MEAN CORPUSCULAR HEMOGLOBIN 29.6 pg (25.6-32.2); MONO # 0.69 (0.24-0.82); NEUT # 3.21 (1.56-6.13); NEUT % 66.3 % (34.0-71.1); RED BLOOD COUNT 3.99 M/uL (3.93-5.22); RED CELL DISTRIBUTION WIDTH 18.5 % (11.6-14.4)
[2025-03-05 10:28] LABS: ALBUMIN 2.6 gm/dL (3.4-5.0); BILIRUBIN TOTAL 0.74 mg/dL (0.3-1.2); CALCIUM 8.9 mg/dL (8.5-10.1); CREATININE SERUM 0.96 mg/dL (0.55-1.02); GFR 59.08; GLOBULINA 3.9 G/DL (2.4-3.5); MAGNESIUM 1.5 mg/dL (1.8-2.4); PHOSPHOROUS 2.1 mg/dL (2.5-4.9); POTASSIUM 3.26 mEq/L (3.5-5.1); TOTAL PROTEIN 6.5 gm/dL (6.4-8.2)
[2025-03-05 10:30] LABS: MONO % 14.3 % (4.7-12.5); PLATELET COUNT 62 K/uL (163-369)
[2025-03-05 10:32] LABS: C-REACTIVE PROTEIN 6.35 MG/DL (0.00-0.29)
[2025-03-05 14:33] LABS: CALCIUM 9.2 mg/dL (8.5-10.1); CREATININE SERUM 1.01 mg/dL (0.55-1.02); GFR 55.72; POTASSIUM 3.01 mEq/L (3.5-5.1)
[2025-03-05 16:00] VITALS: BP 107/71; O2SAT 95
[2025-03-05] MEDS ORDERED: levoFLOXacin IN DEXTROSE 5 % 150 ML IV SCH (17:00)
[2025-03-05] MEDS ORDERED: FAMOtidine 20 MG TABLET PO SCH (17:00)
[2025-03-06] VITALS: BP 115/77; O2SAT 95
[2025-03-06] MEDS ORDERED: VANCOMYCIN HCL 1,000 MG VIAL ONE ×2 (07:07→16:05)
[2025-03-06 08:00] VITALS: BP 135/79; O2SAT 95
[2025-03-06] MEDS ORDERED: DIATRIZOATE MEGLUMINE, SODIUM 30 ML BOTTLE PO NR (08:00)
[2025-03-06] MEDS ORDERED: PANTOPRAZOLE SODIUM 40 MG TABLET.DR PO SCH (09:00)
[2025-03-06 16:27] VITALS: BP 135/70; O2SAT 96
[2025-03-07 00:47] VITALS: BP 126/84; O2SAT 96
[2025-03-07 05:07] LABS: CA 15-3 48.6 U/mL (0.0-25.0)
[2025-03-07] MEDS ORDERED: VANCOMYCIN HCL 1,000 MG VIAL ONE ×3 (06:25→20:31)
[2025-03-07 08:10] LABS: BASO % 0.3 % (0.1-1.2); EOS # 0.01 (0.04-0.54); EOS % 0.3 % (0.7-7.0); HEMATOCRIT 29.6 % (34.1-44.9); LYMPH # 0.43 (1.18-3.74); MEAN CORPUSCULAR HEMOGLOBIN 29.6 pg (25.6-32.2); MONO # 0.39 (0.24-0.82); NEUT # 2.99 (1.56-6.13); NEUT % 76.6 % (34.0-71.1); RED BLOOD COUNT 3.31 M/uL (3.93-5.22); RED CELL DISTRIBUTION WIDTH 18.8 % (11.6-14.4)
[2025-03-07 08:14] LABS: BILIRUBIN TOTAL 0.51 mg/dL (0.3-1.2); CALCIUM 8.6 mg/dL (8.5-10.1); CREATININE SERUM 0.76 mg/dL (0.55-1.02); GFR 77.11; GLOBULINA 3.6 G/DL (2.4-3.5); POTASSIUM 3.03 mEq/L (3.5-5.1); TOTAL PROTEIN 5.6 gm/dL (6.4-8.2)
[2025-03-07 08:20] VITALS: BP 118/79; O2SAT 96
[2025-03-07 08:21] LABS: HEMOGLOBIN 9.8 g/dL (11.2-15.7); PLATELET COUNT 56 K/uL (163-369)
[2025-03-07 15:00] VITALS: BP 114/82; O2SAT 96
[2025-03-08 00:29] VITALS: BP 93/54; O2SAT 96
[2025-03-08] MEDS ORDERED: VANCOMYCIN HCL 1,000 MG VIAL ONE ×2 (06:48→15:08)
[2025-03-08 07:59] VITALS: BP 107/66; O2SAT 97
[2025-03-08 11:17] LABS: BASO % 0.2 % (0.1-1.2); EOS # 0.02 (0.04-0.54); EOS % 0.5 % (0.7-7.0); HEMATOCRIT 28.5 % (34.1-44.9); HEMOGLOBIN 9.7 g/dL (11.2-15.7); LYMPH % 12.1 % (19.3-53.1); MEAN CORPUSCULAR HEMOGLOBIN 30.1 pg (25.6-32.2); MONO # 0.33 (0.24-0.82); NEUT # 3.22 (1.56-6.13); RED BLOOD COUNT 3.22 M/uL (3.93-5.22); RED CELL DISTRIBUTION WIDTH 18.5 % (11.6-14.4)
[2025-03-08 11:21] LABS: PLATELET COUNT 40 K/uL (163-369)
[2025-03-08 12:35] LABS: ALBUMIN 1.8 gm/dL (3.4-5.0); BILIRUBIN TOTAL 0.79 mg/dL (0.3-1.2); CALCIUM 8.5 mg/dL (8.5-10.1); CREATININE SERUM 0.68 mg/dL (0.55-1.02); GFR 87.67; GLOBULINA 3.7 G/DL (2.4-3.5); POTASSIUM 3.43 mEq/L (3.5-5.1); TOTAL PROTEIN 5.5 gm/dL (6.4-8.2)
[2025-03-08 15:30] VITALS: BP 104/69; O2SAT 96
[2025-03-09 01:01] VITALS: BP 123/75; O2SAT 95
[2025-03-09 07:47] LABS: BASO % 0.5 % (0.1-1.2); EOS # 0.02 (0.04-0.54); EOS % 0.5 % (0.7-7.0); HEMATOCRIT 31.3 % (34.1-44.9); LYMPH # 0.46 (1.18-3.74); LYMPH % 11.6 % (19.3-53.1); MEAN CORPUSCULAR HEMOGLOBIN 29.4 pg (25.6-32.2); MONO # 0.34 (0.24-0.82); MONO % 8.5 % (4.7-12.5); NEUT % 77.9 % (34.0-71.1); RED BLOOD COUNT 3.54 M/uL (3.93-5.22); RED CELL DISTRIBUTION WIDTH 18.3 % (11.6-14.4)
[2025-03-09 07:53] LABS: HEMOGLOBIN 10.4 g/dL (11.2-15.7); PLATELET COUNT 50 K/uL (163-369)
[2025-03-09 08:07] LABS: ALBUMIN 1.8 gm/dL (3.4-5.0); BILIRUBIN TOTAL 0.63 mg/dL (0.3-1.2); CALCIUM 8.6 mg/dL (8.5-10.1); CREATININE SERUM 0.77 mg/dL (0.55-1.02); GFR 75.96; GLOBULINA 3.8 G/DL (2.4-3.5); TOTAL PROTEIN 5.6 gm/dL (6.4-8.2)
[2025-03-09 08:29] LABS: POTASSIUM 2.69 mEq/L (3.5-5.1)
[2025-03-09 08:57] VITALS: BP 117/77; O2SAT 96
[2025-03-09] MEDS ORDERED: VANCOMYCIN HCL 1,000 MG VIAL ONE ×2 (09:32→14:37)
[2025-03-09] MEDS ORDERED: POTASSIUM CHLORIDE IN WATER 100 ML IV NR (09:40)
[2025-03-09 16:00] VITALS: BP 119/75; O2SAT 95
[2025-03-10 00:30] VITALS: BP 128/74; O2SAT 99
[2025-03-10 08:00] VITALS: BP 127/81; O2SAT 96
[2025-03-10] MEDS ORDERED: MAGNESIUM SULFATE IN WATER 50 ML IV NR (10:00)
[2025-03-10 11:59] LABS: BASO % 0.8 % (0.1-1.2); EOS # 0.03 (0.04-0.54); EOS % 0.6 % (0.7-7.0); HEMATOCRIT 31.3 % (34.1-44.9); HEMOGLOBIN 10.4 g/dL (11.2-15.7); LYMPH # 0.51 (1.18-3.74); LYMPH % 10.1 % (19.3-53.1); MEAN CORPUSCULAR HEMOGLOBIN 29.4 pg (25.6-32.2); MONO # 0.43 (0.24-0.82); MONO % 8.5 % (4.7-12.5); NEUT # 4.01 (1.56-6.13); NEUT % 79.2 % (34.0-71.1); RED BLOOD COUNT 3.54 M/uL (3.93-5.22); RED CELL DISTRIBUTION WIDTH 18.6 % (11.6-14.4)
[2025-03-10] MEDS ORDERED: POTASSIUM CHLORIDE 10 MEQ CAPSULE PO SCH (12:00)
[2025-03-10 12:01] LABS: PLATELET COUNT 54 K/uL (163-369)
[2025-03-10 12:49] LABS: ALBUMIN 1.8 gm/dL (3.4-5.0); BILIRUBIN TOTAL 0.71 mg/dL (0.3-1.2); CALCIUM 8.6 mg/dL (8.5-10.1); CREATININE SERUM 0.64 mg/dL (0.55-1.02); GFR 94.03; GLOBULINA 4.1 G/DL (2.4-3.5); POTASSIUM 3.38 mEq/L (3.5-5.1); TOTAL PROTEIN 5.9 gm/dL (6.4-8.2)
[2025-03-10] MEDS ORDERED: VITAMIN B COMPLEX/LYSINE 15 ML BLIST.PACK PO SCH (13:00)
[2025-03-10] MEDS ORDERED: CHLORHEXIDINE GLUCONATE 15ML BRUSH KIT MM SCH (14:43)
[2025-03-10] MEDS ORDERED: POLYVINYL ALCOHOL 15 ML DROPS OP SCH (14:43)
[2025-03-10 16:00] VITALS: BP 124/76; O2SAT 99
[2025-03-10] MEDS ORDERED: ONDANSETRON HCL 2 MG/ML VIAL IV PRN (19:00)
[2025-03-11 00:51] VITALS: BP 116/76; O2SAT 100
[2025-03-11 08:00] VITALS: BP 129/79; O2SAT 97
[2025-03-11 08:49] LABS: BASO % 0.8 % (0.1-1.2); EOS # 0.04 (0.04-0.54); EOS % 0.6 % (0.7-7.0); HEMATOCRIT 33.1 % (34.1-44.9); HEMOGLOBIN 10.8 g/dL (11.2-15.7); LYMPH % 12.7 % (19.3-53.1); MEAN CORPUSCULAR HEMOGLOBIN 29.5 pg (25.6-32.2); MONO # 0.59 (0.24-0.82); MONO % 9.4 % (4.7-12.5); NEUT # 4.78 (1.56-6.13); NEUT % 75.7 % (34.0-71.1); RED BLOOD COUNT 3.66 M/uL (3.93-5.22)
[2025-03-11 08:58] LABS: PLATELET COUNT 66 K/uL (163-369)
[2025-03-11 09:40] LABS: CALCIUM 9.1 mg/dL (8.5-10.1); CREATININE SERUM 0.62 mg/dL (0.55-1.02); GFR 97.53; MAGNESIUM 1.7 mg/dL (1.8-2.4); POTASSIUM 3.64 mEq/L (3.5-5.1)
[2025-03-11] MEDS ORDERED: MAGNESIUM SULFATE IN WATER 50 ML IV NR (11:00)
[2025-03-11 17:20] VITALS: BP 139/88; O2SAT 96
[2025-03-12 01:00] VITALS: BP 129/76; O2SAT 95
[2025-03-12 08:00] VITALS: BP 135/82; O2SAT 97
[2025-03-12 16:54] VITALS: BP 132/85; O2SAT 97
[2025-03-13 00:39] VITALS: BP 119/80; O2SAT 96
[2025-03-13 08:39] LABS: BASO % 0.2 % (0.1-1.2); EOS # 0.02 (0.04-0.54); EOS % 0.4 % (0.7-7.0); HEMATOCRIT 30.4 % (34.1-44.9); HEMOGLOBIN 9.9 g/dL (11.2-15.7); LYMPH % 13.2 % (19.3-53.1); MEAN CORPUSCULAR HEMOGLOBIN 29.5 pg (25.6-32.2); NEUT # 3.39 (1.56-6.13); NEUT % 74.8 % (34.0-71.1); RED BLOOD COUNT 3.36 M/uL (3.93-5.22); RED CELL DISTRIBUTION WIDTH 18.6 % (11.6-14.4)
[2025-03-13 08:45] LABS: PLATELET COUNT 55 K/uL (163-369)
== END 2025-03-13 15:26 | disposition home or self-care (01) | DRG 193 ==
LOC: ER 11:04 → SURH 19:36 → MEDI 19:36 → SURH 03-04 03:51
PROVIDERS: General Practice; Internal Medicine; Internal Medicine Hematology & Oncology; Internal Medicine Infectious Disease; ADMIT Internal Medicine; ATTEND Internal Medicine
PROC: BW21YZZ Computerized Tomography (CT Scan) of Abdomen and Pelvis using Other Contrast (ICD-10-PCS; principal; 2025-03-03)
PROC: BW24ZZZ Computerized Tomography (CT Scan) of Chest and Abdomen (ICD-10-PCS; 2025-03-03)
PROC: 30233N1 Transfusion of Nonautologous Red Blood Cells into Peripheral Vein, Percutaneous Approach (ICD-10-PCS; 2025-03-04)
PROC: 8E0ZXY6 Isolation (ICD-10-PCS; 2025-03-04)
PROC: B24BZZZ Ultrasonography of Heart with Aorta (ICD-10-PCS; 2025-03-05)
PROC: 02HV33Z Insertion of Infusion Device into Superior Vena Cava, Percutaneous Approach (ICD-10-PCS; 2025-03-05)
PROC: BW21YZZ Computerized Tomography (CT Scan) of Abdomen and Pelvis using Other Contrast (ICD-10-PCS; 2025-03-06)
DX: J18.9 Pneumonia, unspecified organism (principal); D61.810 Antineoplastic chemotherapy induced pancytopenia; R78.81 Bacteremia; C25.9 Malignant neoplasm of pancreas, unspecified; C78.7 Secondary malignant neoplasm of liver and intrahepatic bile duct; D64.9 Anemia, unspecified; D69.6 Thrombocytopenia, unspecified; E87.6 Hypokalemia; Z86.718 Personal history of other venous thrombosis and embolism; D63.0 Anemia in neoplastic disease; B96.89 Other specified bacterial agents as the cause of diseases classified elsewhere

== ENCOUNTER 2025-04-16 18:12 | Inpatient (IN) | payer OTHER ==
[~2025-04-16] VITALS: Ht 170.2 cm; Wt 132.0 kg
[~2025-04-16 18:12] MED LIST changes: +ELIQUIS2.5 MG
--- NOTE | 2025-04-16 18:16 | NUR ---
SE RECIBE PACIENTE FEMENINA ALERTA Y ORIENTADA X 3 ESFERAS LA CUAL INDICA QUE DESDE ALYX PRESENTA EDEMA Y ERITEMA EN EXTREMIDADES INFERIORES.
[2025-04-16] MEDS ORDERED: CEFTRIAXONE SODIUM 1,000 MG VIAL IV ONE (18:30)
--- NOTE | 2025-04-16 18:47 | NUR ---
SE ORIENTA A PACIENTE SOBRE TX MEDICO, REFIERE ENTENDER. SE REALIZAN MUESTRAS DE LABORATORIO BAJO MEDIDAS ASEPTICAS. SE ADMINISTRAN MEDICAMENTOS [place] ORDEN MEDICA. SE COORDINA CLARA X. PACIENTE MANEJADA POR .
[2025-04-16 19:35] LABS: BASO % 0.4 % (0.1-1.2); EOS # 0.04 (0.04-0.54); EOS % 1.7 % (0.7-7.0); LYMPH # 0.40 (1.18-3.74); LYMPH % 17.5 % (19.3-53.1); MEAN PLATELET VOLUME 11.80 fl (9.4-12.4); MONO # 0.04 (0.24-0.82); MONO % 1.7 % (4.7-12.5); NEUT # 1.80 (1.56-6.13); NEUT % 78.7 % (34.0-71.1)
[2025-04-16 19:36] LABS: RED CELL DISTRIBUTION WIDTH 23.0 % (11.6-14.4)
[2025-04-16 19:40] LABS: ERYTHROCYTE SEDIMENTATION RATE 52 mm/hr (0-30)
[2025-04-16 19:57] LABS: ALT/SGPT 56.0 U/L (12-78); AST/SGOT 115.0 U/L (15-37); BILIRUBIN TOTAL 0.63 mg/dL (0.3-1.2); BILIRUBIN,CONJUGATED 0.14 mg/dL (0.0-0.2); BUN CREA RATIO 16.0 (7.0-25.0); CREATININE SERUM 0.76 mg/dL (0.55-1.02); GFR 77.11; GLOBULINA 3.1 G/DL (2.4-3.5); GLUCOSE FASTING 107.0 mg/dL (65-100); OSMOLALITY SERUM 293.0 MOSM/KG (275-295)
[2025-04-16] MEDS ORDERED: APIXABAN 5 MG TABLET PO SCH (20:21)
[2025-04-16] MEDS ORDERED: ACETAMINOPHEN 500 MG GEL..CAP PO PRN (20:30)
[2025-04-16] MEDS ORDERED: POTASSIUM BICARBONATE/CIT AC 25 MEQ TABLET.EFF PO ONE (20:30)
[2025-04-16] MEDS ORDERED: POTASSIUM CHLORIDE IN WATER 100 ML IV SCH (21:00)
[2025-04-16 23:20] LABS: INR 1.11
[2025-04-17 00:47] LABS: URINE APPEARANCE Clear; URINE BILIRRUBIN Negative (NEGATIVE); URINE BLOOD Negative; URINE COLOR Yellow; URINE GLUCOSE Negative (NEGATIVE); URINE KETONE Negative (NEGATIVE); URINE LEUKOCYTE Negative; URINE NITRATE Negative; URINE PROTEIN Negative (NEGATIVE); URINE UROBILINOGEN 0.2 E.U./dl
[2025-04-17 00:50] LABS: URINE BACTERIA 4.7 uL (0.0-1933); URINE WBC 7.8 uL (0.0-23.2)
[2025-04-17 00:52] VITALS: BP 102/62; O2SAT 96
[2025-04-17 00:52] LABS: URINE CAST 0.00 uL (0.0-1.40); URINE EPITHELIAL CELLS 1.2 uL (0.0-38.8); URINE RBC 0.7 uL (0.0-20.8)
[2025-04-17] MEDS ORDERED: FAMOTIDINE/PF 20 MG in 0.9 % SODIUM CHLORIDE 8 ML IV PUSH SCH (09:00)
[2025-04-17] MEDS ORDERED: AMINO ACIDS/PROTEIN HYDROLYS 30 ML BLIST.PACK PO SCH (09:00)
[2025-04-17] MEDS ORDERED: MAGNESIUM SULFATE IN WATER 50 ML IV ONE (10:45)
[2025-04-17] MEDS ORDERED: POTASSIUM CHLORIDE IN WATER 100 ML IV SCH (12:00)
[2025-04-17 13:53] VITALS: BP 137/85; O2SAT 98
[2025-04-17 15:13] VITALS: BP 119/71; O2SAT 99
[2025-04-17 18:04] VITALS: BP 119/78; O2SAT 97
[2025-04-17] MEDS ORDERED: DOCUSATE SODIUM 100MG CAP PO SCH (21:11)
[2025-04-17 21:54] VITALS: O2SAT 97
[2025-04-17 23:52] VITALS: O2SAT 99
[2025-04-18] VITALS (8 sets, daily range): BP systolic 114–133; BP diastolic 73–84; O2SAT 95–99
[2025-04-18] MEDS ORDERED: LACTULOSE 20 G/30 ML BLIST.PACK PO NR (13:00)
[2025-04-18] MEDS ORDERED: FILGRASTIM-AAFI 300 MCG/0.5 ML SYRINGE SUBCUTANEO ONE (16:00)
[2025-04-18] MEDS ORDERED: LACTULOSE 20 G/30 ML BLIST.PACK PO SCH (21:00)
[2025-04-19] VITALS (8 sets, daily range): BP systolic 126–150; BP diastolic 79–86; O2SAT 95–100
[2025-04-19 10:39] LABS: BUN CREA RATIO 14.0 (7.0-25.0); CREATININE SERUM 0.66 mg/dL (0.55-1.02); GFR 90.75; GLUCOSE FASTING 111.0 mg/dL (65-100); OSMOLALITY SERUM 284.0 MOSM/KG (275-295)
[2025-04-19 10:42] LABS: BASO % 0.5 % (0.1-1.2); EOS # 0.10 (0.04-0.54); EOS % 1.6 % (0.7-7.0); LYMPH # 0.66 (1.18-3.74); LYMPH % 10.7 % (19.3-53.1); MEAN PLATELET VOLUME 12.40 fl (9.4-12.4); MONO # 0.24 (0.24-0.82); MONO % 3.9 % (4.7-12.5); NEUT # 5.10 (1.56-6.13); NEUT % 82.7 % (34.0-71.1); RED CELL DISTRIBUTION WIDTH 20.9 % (11.6-14.4)
[2025-04-19 11:10] LABS: BAND MAN 2.0 %; EOSINOPHIL MAN 2.0 %; LYMPHOCYTE MAN 8.0 %; MONOCYTE MAN 6.0 %; NEUTROPHILS MAN 82.0 %
[2025-04-19] MEDS ORDERED: POTASSIUM CHLORIDE 20MEQ/100ML H2O PB IV NR (15:30)
[2025-04-19] MEDS ORDERED: POTASSIUM CHLORIDE 10 MEQ CAPSULE PO NR (16:00)
[2025-04-19] MEDS ORDERED: NA PHOS,M-B/NA PHOS,DI-BA 1 BOTTLE ENEMA RECTAL ONE (16:45)
[2025-04-20] VITALS (7 sets, daily range): BP systolic 137–143; BP diastolic 79–88; O2SAT 90–97
[2025-04-20 07:06] LABS: BUN CREA RATIO 17.0 (7.0-25.0); CREATININE SERUM 0.78 mg/dL (0.55-1.02); GFR 74.83; GLUCOSE FASTING 113.0 mg/dL (65-100); OSMOLALITY SERUM 290.0 MOSM/KG (275-295)
[2025-04-20] MEDS ORDERED: POTASSIUM CHLORIDE 10 MEQ CAPSULE PO SCH (08:00)
[2025-04-21 01:27] VITALS: BP 132/80; O2SAT 99
[2025-04-21 04:21] VITALS: O2SAT 92
[2025-04-21 08:00] VITALS: BP 166/94; O2SAT 95
[2025-04-21 08:24] LABS: BASO % 0.4 % (0.1-1.2); EOS # 0.04 (0.04-0.54); EOS % 0.6 % (0.7-7.0); LYMPH # 1.10 (1.18-3.74); LYMPH % 16.2 % (19.3-53.1); MEAN PLATELET VOLUME 11.40 fl (9.4-12.4); MONO # 0.60 (0.24-0.82); MONO % 8.8 % (4.7-12.5); NEUT # 4.96 (1.56-6.13); NEUT % 73.0 % (34.0-71.1); RED CELL DISTRIBUTION WIDTH 20.7 % (11.6-14.4)
[2025-04-21 09:11] LABS: ALT/SGPT 30.0 U/L (12-78); AST/SGOT 26.0 U/L (15-37); BILIRUBIN TOTAL 0.51 mg/dL (0.3-1.2); BUN CREA RATIO 18.0 (7.0-25.0); CREATININE SERUM 0.71 mg/dL (0.55-1.02); GFR 83.41; GLOBULINA 3.4 G/DL (2.4-3.5); GLUCOSE FASTING 100.0 mg/dL (65-100); OSMOLALITY SERUM 287.0 MOSM/KG (275-295)
[2025-04-21 09:39] VITALS: O2SAT 94
== END 2025-04-21 14:58 | disposition home or self-care (01) | DRG 809 ==
LOC: ER 18:12 → SURH 20:50 → SEC-K 20:50 → SURH 23:31 → SEC-K 04-17 06:43 → SURH 04-17 16:40
PROVIDERS: General Practice; Internal Medicine; ADMIT Student in an Organized Health Care Education/Training Program; ATTEND Student in an Organized Health Care Education/Training Program
PROC: B24BYZZ Ultrasonography of Heart with Aorta using Other Contrast (ICD-10-PCS; principal; 2025-04-16)
DX: D61.818 Other pancytopenia (principal); C25.9 Malignant neoplasm of pancreas, unspecified; E87.6 Hypokalemia; D64.9 Anemia, unspecified; R60.0 Localized edema